=== PATIENT | female | born 1990 | race American Indian/Alaskan Native ===

== ENCOUNTER 2019-11-15 23:19 | Emergency (ER) | payer SELFPAY ==
--- NOTE | 2019-11-16 03:06 | XRay Report ---
CHEST 1 VIEW INDICATION / CLINICAL INFORMATION: Chest Pain. COMPARISON: None available. FINDINGS: SUPPORT DEVICES: None. HEART / MEDIASTINUM: No significant abnormality. LUNGS / PLEURA: No significant pulmonary or pleural abnormality. No pneumothorax. ADDITIONAL FINDINGS: No significant additional findings. IMPRESSION: 1. No acute findings. Signer Name: Denise Adkins MD Signed: 11/16/2019 3:02 AM Workstation Name: [id number]
[2019-11-16] MEDS ORDERED: DEXAMETHASONE 4 MG TAB PO ONE (06:56)
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
[2019-11-16 07:20] VITALS: BP 106/72
== END 2019-11-16 07:29 | disposition home or self-care (01) ==
LOC: ED 23:19
DX: M54.10 Radiculopathy, site unspecified (principal); F17.200 Nicotine dependence, unspecified, uncomplicated; F12.10 Cannabis abuse, uncomplicated
CPT/HCPCS: 71045; 93005; 93010; 99283; J8540